=== PATIENT | male | born 2000 | race Two or more races ===

== ENCOUNTER 2021-02-25 11:30 | Emergency (ER) | payer OTHER ==
[~2021-02-25] VITALS: Ht 172.7 cm; Wt 77.1 kg
== END 2021-02-25 12:39 | disposition home or self-care (01) ==
LOC: ER 11:30
DX: S61.245A Puncture wound with foreign body of left ring finger without damage to nail, initial encounter (principal); W46.0XXA Contact with hypodermic needle, initial encounter; Y93.89 Activity, other specified; Y92.69 Other specified industrial and construction area as the place of occurrence of the external cause; Y99.8 Other external cause status

== ENCOUNTER 2021-03-16 12:05 | Emergency (ER) | payer OTHER ==
[~2021-03-16] VITALS: Ht 172.7 cm; Wt 78.9 kg
== END 2021-03-16 14:29 | disposition home or self-care (01) ==
LOC: ER 12:05
DX: S00.252A Superficial foreign body of left eyelid and periocular area, initial encounter (principal); T65.891A Toxic effect of other specified substances, accidental (unintentional), initial encounter; Y92.234 Operating room of hospital as the place of occurrence of the external cause; Y93.89 Activity, other specified; Y99.8 Other external cause status

== ENCOUNTER → 2021-05-07 | Outpatient (CLI) | payer OTHER | END | disposition home or self-care (01) | LOC: LAB 09:36 | PROVIDERS: ATTEND Emergency Medicine Pediatric Emergency Medicine | DX: Z03.818 Encounter for observation for suspected exposure to other biological agents ruled out (principal) ==

== ENCOUNTER 2021-06-11 08:00 | Outpatient (CLI) | payer OTHER | END 2021-06-11 08:30 | disposition home or self-care (01) | LOC: PPH VACUNA 08:00 | PROVIDERS: ATTEND Emergency Medicine Pediatric Emergency Medicine | DX: Z23 Encounter for immunization (principal) ==

== ENCOUNTER 2021-07-02 08:00 | Outpatient (CLI) | payer OTHER | END 2021-07-02 08:30 | disposition home or self-care (01) | LOC: PPH VACUNA 08:00 | PROVIDERS: ATTEND Emergency Medicine Pediatric Emergency Medicine | DX: Z23 Encounter for immunization (principal) ==